=== PATIENT | male | born 1990 | race Caucasian/White ===

== ENCOUNTER 2017-09-03 15:39 | Emergency (ER) | payer MEDICAID, OTHER | END 2017-09-03 18:34 | disposition home or self-care (01) | LOC: FTE 15:39 | DX: L03.116 Cellulitis of left lower limb (principal) | CPT/HCPCS: 99284 ==

== ENCOUNTER → 2017-09-05 | Emergency (ER) | payer SELFPAY, MEDICAID | END | disposition left against medical advice (07) | LOC: E/R 11:15 | DX: Z53.21 Procedure and treatment not carried out due to patient leaving prior to being seen by health care provider (principal) ==